=== PATIENT | female | born 1940 | race Caucasian/White ===

== ENCOUNTER 2016-11-13 15:57 | Outpatient (CLI) | payer MEDICARE, OTHER ==
[~2016-11-13] VITALS: Ht 160 cm; Wt 53.5 kg
[2016-11-13] MEDS ORDERED: SYNTHROID25 MCG PO (17:06)
[2016-11-13] MEDS ORDERED: PEPCID40 MG PO (17:07)
[2016-11-13] MEDS ORDERED: PROTONIX40 MG PO (17:07)
[2016-11-13] MEDS ORDERED: HYDROCODON-ACE1 EAC7 PO (17:08)
[2016-11-13 17:09] VITALS: BP 171/91; BMI 21.4
--- NOTE | 2016-11-13 17:22 | NUR ---
6086 ASSESSMENT COMPLETED. V/S STABLE. PATIENT HAD BACK SURGERY LAST WEEK GOT CONSTIPATED. YESTERDAY TOOK LACTULOSE AND WATER BUT NOT HAVING GOOD BM, ALSO TOOK SOMETHING ELSE BUT CANT REMEMBER.
--- NOTE | 2016-11-13 17:24 | NUR ---
1710 1 TAP WATER ENEMA GIVEN. UP TO BEDSIDE COMMODE AND TRYING TO HOLD IT.
--- NOTE | 2016-11-13 17:26 | NUR ---
1726 ENEMA TAP WATER TOLERATED 750CC.
--- NOTE | 2016-11-13 17:26 | NUR ---
1 TAP WATER ENEMA GIVEN LIQUIDY BROWN NOTED.
--- NOTE | 2016-11-13 18:09 | NUR ---
1800 1000 CC BAG WARM TAP ENEMAG GIVEN. ROLLED BACK AND FORTH ABLE TO TOLERATE PER PATIENT HAD BACK SURGERY. UP ON COMMODE AFTER HOLDING X 7 MINUTES.
--- NOTE | 2016-11-13 18:42 | NUR ---
183 TALKED WITH DANIELA COVINGTON MANAGER IN HOME AND REPORTED PATIENT WITH ORDER FOR ENEMA AND ONLY DARK RESULTS AND SOME YELLOW. DISTENDED AND POOCHED.HYPOACTIVE BOWEL SOUNDS. ORDERS RECEIVED. GAVE 250CC OF ENEMA FLUID. LIGHT YELLOW NO HARD STOOL.EXPLAINED TO PATIENT AND FAMILY NEED FOR OBSERVATION STAY. LABS XRAY AND IV ALSO ORDERED DIET.1849 KUB DONE.
[2016-11-13] MEDS ORDERED: COLACE100 MG PO (19:09)
--- NOTE | 2016-11-13 19:19 | NUR ---
1908 MAG CITRATE 1 BOTTLE CONSUMED. BACK ON BEDSIDE COMMODE CHAIR.
--- NOTE | 2016-11-13 19:43 | NUR ---
193 IV SALINE LOCK 22 GAUGE NEEDLE 1 STICK GOOD BLOOD RETURN LEFT ARM FLUSHED WITH SALINE. DIET ORDERED.
--- NOTE | 2016-11-13 19:44 | NUR ---
1939 REPORT CALLED ADEN ASKEW AND PATIENT TRANSFERED TO ROOM 2133.
--- NOTE | 2016-11-13 19:48 | NUR ---
1944 CHECKED FOR IMPACTION AND NO STOOL FELT.
--- NOTE | 2016-11-13 20:10 | NUR ---
RECIEVED TO ROOM 2133 FROM OUT PATIENTS. PT A&O, VITALS STABLE. EXPLAINED TO PT AND DAUGHTER THAT ORDERS ARE TO CONTINUE ENEMAS UNTIL CLEAR, HOWEVER I WILL GIVE HER A BREAK AT THIS TIME AND LET HER REST FOR A BIT, AND WILL START UP WITH ENEMAS AGAIN IN A LITTLE WHILE.
[2016-11-13 20:37] VITALS: BP 106/50
[2016-11-13 21:00] LABS: BASOPHILS 0.2 % (0.0-2.0); EOSINOPHILS 0.4 % (0-7); HEMATOCRIT 34.6 % (36.0-48.0); IMMATURE GRANULOCYTES 0.4 % (0-5); LYMPHOCYTES 8.8 % (15-50); MCH 31.9 pg (26.0-34.0); MCHC 34.7 g/dL (31.0-37.0); MEAN PLATELET VOLUME 8.6 fL (7.4-10.4); MONOCYTES 7.3 % (2-11); NEUTROPHILS 82.9 % (40-80); PLATELET COUNT 282 10x3/uL (130-400); RBC 3.76 10x6/uL (4.00-5.40); WBC 13.3 10x3/uL (4.8-10.8)
--- NOTE | 2016-11-13 21:10 | NUR ---
AMBULATING IN [place] AROUND NURSES STATION WITH DAUGHTER AT SIDE.
[2016-11-13 21:32] LABS: ALBUMIN 3.6 g/dL (3.4-5.0); ANION GAP 13.2 mmol/L (8-16); BILIRUBIN - TOTAL 0.9 mg/dL (0.2-1.3); CALCIUM 9.3 mg/dL (8.5-10.1); CREATININE - SERUM 0.8 mg/dL (0.6-1.3); POTASSIUM - SERUM 3.2 mmol/L (3.5-5.1); PROTEIN - SERUM 6.4 g/dL (6.4-8.2)
[2016-11-14] VITALS: BP 155/79
--- NOTE | 2016-11-14 00:48 | NUR ---
RESTING ON LEFT SIDE, RESPERATIONS EVEN, NO S/S DISTRESS NOTED. DAUGHTER ASLEEP AT BED SIDE.
[2016-11-14 00:52] VITALS: BP 149/77
--- NOTE | 2016-11-14 01:42 | NUR ---
CALLED TO ROOM, PT UP TO BR TO HAVE A BM. PT ABLE TO PASS LIQUID STOOL, WILL CONT TO MONITOR AND PERFORM ANOTHER ENEMA IN A BIT.
--- NOTE | 2016-11-14 02:10 | NUR ---
LYING IN BED WITH EYES CLOSED, CALL LIGHT IN REACH. WILL CONTINUE WITH PLAN OF CARE.
[2016-11-14 04:00] VITALS: BP 177/81
[2016-11-14 05:04] VITALS: BP 111/60
--- NOTE | 2016-11-14 05:09 | NUR ---
1000 CC WARM WATER ENEMA COMPLETE, RESULTS WERE CLEAR LIQUID WITH SCANT AMOUNTS OF SEDIMENT. PT TOLERATED WELL, STATED ABD SORE, ABD DISTENDED. INFORMED PT THAT WE WILL TRAY AGAIN LATER TO SEE IF WE MORE RESULTS, WILL LET PT REST FOR NOW.
--- NOTE | 2016-11-14 06:56 | NUR ---
POTASSIUM 2.8 AND MAG 1.5, STATRED COVERAGE PER PROTOCOL.
--- NOTE | 2016-11-14 07:32 | NUR ---
PT SITTING UP IN BED DENIES NEEDS AT THIS TIME WILL CONT TO MONITOR.
--- NOTE | 2016-11-14 07:33 | NUR ---
WAS AN ORDER TO CONSULT GI IF PT WAS NOT BETTER. PT NOT BETTER. STOOLS ARE CLEAR AFTER MULTIPLE ENEMAS. PT STILL UNCOMFORTABLE AND FEELS CONSTIPATED AND IMPACTED GI CONSULTED.
[2016-11-14 08:23] VITALS: BP 198/72
[2016-11-14 10:39] VITALS: Ht 160 cm; Wt 53.5 kg
--- NOTE | 2016-11-14 11:14 | NUR ---
PT HAS BEEN UP AMBULATING IN THE HALLS ALL DAY. SHE IS READY TO "GO HOME". GI HAS BEEN CONSULTED.
[2016-11-14] MEDS ORDERED: MINERAL OIL25 ML PO (14:40)
[2016-11-14 15:58] VITALS: BP 104/64
--- NOTE | 2016-11-14 16:06 | NUR ---
WENT OVER DC PAPERWORK WITH PT PT VERBALIZES UNDERSTANDING. DC PIV WITH CATHETER TIP INTACT. PT WAITING ON RIDE.
--- NOTE | 2016-11-14 16:45 | NUR ---
PT WAS WHEELED OUT IN WHEELCHAIR BY ARMOND
== END 2016-11-14 17:14 | disposition home or self-care (01) ==
LOC: D.OPS 15:57 → D.M2 15:57 → D.OPS 11-14 17:14
PROVIDERS: Family Medicine
DX: K56.41 Fecal impaction (principal)

== ENCOUNTER → 2018-05-27 08:16 | Outpatient (CLI) | payer MEDICARE, OTHER ==
[2016-11-14 10:39] VITALS: BMI 20.9
[~2018-05-27 08:16] MED LIST: COLACE100 MG PO; HYDROCODON-ACE1 EAC7 PO; MINERAL OIL25 ML PO; PEPCID40 MG PO; PROTONIX40 MG PO; SYNTHROID25 MCG PO
== END | disposition home or self-care (01) ==
LOC: D.CT 05-18 11:30
DX: I65.23 Occlusion and stenosis of bilateral carotid arteries (principal)

== ENCOUNTER → 2020-03-06 09:13 | Outpatient (CLI) | payer MEDICARE, BC ==
[2016-11-14 10:39] VITALS: BMI 20.9
== END | disposition home or self-care (01) ==
LOC: D.RAD 09:13
PROVIDERS: ATTEND Family Medicine
DX: R19.5 Other fecal abnormalities (principal)